=== PATIENT | female | born 1970 | race Caucasian/White ===

== ENCOUNTER 2024-12-03 11:29 | Emergency (ER) | payer OTHER, SELFPAY ==
[2024-12-03 11:31] VITALS: BP 141/95
[2024-12-03 11:37] VITALS: BMI 20.4
--- NOTE | 2024-12-03 12:21 | ED.GENMED ---
History of Present Illness
General
Chief Complaint: Head Injury
Source: patient
Exam Limitations: none
Time Seen by Provider: 12/03/24 12:05
History of Present Illness
History of Present Illness:
54 year old female presents with head injury. She was using a leaf blower and her hair got pulled into the fan of the blower and the blower hit her in the head quite forcefully. No LOC but she notes a significant headache with nausea. No
thinners. No neck pain. Her had to cut her hair to get her head free from the blower.
Past History
Past History
ED Past Medical History: None
Social History
Tobacco: Non-smoker
Alcohol: None
Living: with family
Employment: Employed
Phy Exam
Physical Exam
Physical Exam:
General: Uncomfortable appearing female in no acute respiratory distress HEENT normocephalic 1 cm laceration surrounded by abrasion to the right parietal scalp. TMs normal pupils equal round reactive to light.
Neuro: Alert and oriented. Conversing appropriately. Normal gait and function to arms and legs.
Course
Orders/Labs/Results
Orders:
Orders
12/03/24 12:18
Acetaminophen [Tylenol] 650 mg PO NOW STA
Ondansetron Orally Disint [Zofran Odt (Orally Disintegrating)] 4 mg PO NOW STA
Tetanus/Diphth/Acelpertussis [Adacel] 0.5 ml IM .ONCE ONE
12/03/24 12:19
CT Head W/o Iv Contrast Urgent
Comment:
Reason For Exam: head injury
Vital Signs
Initial and Last Documented VS:
Initial Vital Signs
Temp Pulse Resp BP Pulse Ox
98.3 F 94 16 141/95 100
12/03/24 11:31 12/03/24 11:31 12/03/24 11:31 12/03/24 11:31 12/03/24 11:31
Last Documented Vital Signs
Temp Pulse Resp BP Pulse Ox
98.3 F 94 16 141/95 100
12/03/24 11:31 12/03/24 11:31 12/03/24 11:31 12/03/24 11:31 12/03/24 11:31
MDM/Problems Addressed
Differential Diagnosis Includes:
Head strike on hard object. Laceration to scalp. Consider skull fracture or intracranial hemorrhage given mechanism. Also she is nauseous with severe headache. Will order CT of the head.
*Critical Care Note
Total Time (30-74mins, 75-104mins- exclusive of procedures): Not Applicable
Update Note
Update Note:
The wound was irrigated copiously with saline solution and anesthetized with 1% lidocaine with epinephrine. The skin was then held in approximation with 2 skin johnna. Patient tolerated this well. Head CT is pending
ED Attending Note
-
Portions of this chart may have been created with voice recognition software.� Occasional wrong word or��sound alike� substitutions may have occurred due to the inherent limitations of voice recognition software.
Discharge Plan
Departure
Patient Disposition: Home (Routine Discharge)
Date of Disposition: 12/03/24
Time of Disposition: 14:42
Presentation/result/management discussed w/ accepting MD/DO: Hospitalist
Patient with high blood pressure during this ER visit?: No
Discharge Problem:
Laceration
Instructions: Concussion, Adult (DC), Laceration Repair With [place] (DC)
Referrals:
Vera Ballard MD [Family Provider] -
Stand Alone Forms: Return to Work
Activity Restrictions/Additional Instructions:
Rest. Avoid excessive physical or cognitive activity. Use Tylenol or ibuprofen for pain. Return if worse otherwise follow-up with your doctor
Interventions
Interventions:
*General Assessment Last Done: 12/03/24 11:39
*ED- Fall Risk Assessment Last Done: 12/03/24 11:39
*ED COVID-19 Vaccine History Last Done: 12/03/24 11:39
ED- Neurological Assessment Last Done: 12/03/24 11:41
ED-Skin Assessment Last Done: 12/03/24 11:42
Discharge Date and Time
Print Language: ICELANDIC
[2024-12-03] MEDS: ADACEL 0.5 ML IM (12:22)
[2024-12-03] MEDS: ZOFRAN ODT (ORALLY DISINTEGRATING) 4 MG PO (12:22)
[2024-12-03] MEDS: TYLENOL 650 MG PO (12:22)
== END 2024-12-03 15:04 | disposition home or self-care (01) ==
LOC: EMR 11:29
PROVIDERS: EMERGENCY PHYSICIAN Emergency Medicine; FAMILY PHYSICIAN Family Medicine
DX: S01.01XA Laceration without foreign body of scalp, initial encounter (principal); X58.XXXA Exposure to other specified factors, initial encounter; Z23 Encounter for immunization; R51.9 Headache, unspecified; R11.0 Nausea
CPT/HCPCS: 99284; 12001; 90471; 70450; 90715

== ENCOUNTER 2024-12-06 08:35 | Emergency (ER) | payer OTHER, SELFPAY ==
[2024-12-06 08:43] VITALS: BP 137/85
--- NOTE | 2024-12-06 09:17 | ED.GENMED ---
History of Present Illness
General
Chief Complaint: Head Injury
Source: patient and records
Exam Limitations: none
Time Seen by Provider: 12/06/24 09:03
History of Present Illness
History of Present Illness:
54yoF with a history of migraines presenting with her son for evaluation of headaches. Patient was seen in the ED 3 days ago for a head injury after her hair got stuck in a leaf blower. CT head during that visit was negative and 2 johnna were
placed to her scalp laceration. Patient has been having ongoing headaches and nausea since then. She is also experiencing photophobia and some intermittent dizziness. She has been alternating between Tylenol and ibuprofen for her headaches. She
had an episode of vomiting today which prompted her to come to the ED. She states she is feeling worse than before. Her current headache is rated as a 6/10 in severity. She denies any visual changes or vertiginous symptoms.
Past History
Past History
ED Past Medical History: None
Social History
Tobacco: Non-smoker
Alcohol: None
Living: with family
Employment: Employed
Phy Exam
Physical Exam
Physical Exam:
Sitting in a dark room. Non-toxic appearing.
General Physical Exam
General Presentation: well appearing
General Skin: warm and dry
General Habitus: normal
General Mental: alert
ENT Exam
ENT Exam: TM's normal and other (Two intact johnna in place to R scalp wound)
Eye Exam
Eye Exam: PERRL and conjunctiva normal
Neurological Exam
Neurological Exam: alert and no motor deficits
[place] Coma Scale
Eye Opening: Spontaneous
Verbal Response: Oriented
Motor Response: Obeys Commands
GCS Total Score: 15
Skin Exam
Skin Exam: normal color and warm/dry
Psychiatric Exam
Psychiatric Exam: normal mood/affect
Course
Orders/Labs/Results
Orders:
Orders
12/06/24 09:15
0.9% Sodium Chloride 1000 ml [Nss] 1,000 ml IV BOLUS
Dexamethasone Sod Phosphate [Decadron] 10 mg IV NOW STA
Diphenhydramine [Benadryl] 25 mg IV NOW STA
Ketorolac [Toradol] 15 mg IV NOW STA
Magnesium Sulfate 2 Gram/50 ml [Magnesium Sulfate] 2 gram in 50 ml IV NOW
Metoclopramide [Reglan] 10 mg IV NOW STA
Vital Signs
Initial and Last Documented VS:
Initial Vital Signs
Temp Pulse Resp BP Pulse Ox
98 F 81 18 137/85 97
12/06/24 08:43 12/06/24 08:43 12/06/24 08:43 12/06/24 08:43 12/06/24 08:43
Last Documented Vital Signs
Temp Pulse Resp BP Pulse Ox
98 F 75 18 117/68 96
12/06/24 08:43 12/06/24 11:30 12/06/24 11:30 12/06/24 11:30 12/06/24 11:30
MDM/Problems Addressed
Differential Diagnosis Includes:
54yoF here with ongoing headaches and nausea since having a head injury 3 days ago. Had an episode of vomiting today. Head CT on 12/03 negative for acute findings. Hx of migraines. VSS. She is sitting in a dark room during exam. She is awake, alert,
with a GCS of 15. Differential diagnosis includes but is not limited to: migraine, postconcussive syndrome
Initial ED plan: IV migraine cocktail and reassess.
*Critical Care Note
Total Time (30-74mins, 75-104mins- exclusive of procedures): Not Applicable
Update Note
Update Note:
Patient feeling significantly proved on reassessment and headache is down to a 2/10 in severity. Patient is stable for discharge. Prescription provided for Zofran. Advised close follow-up with PCP. Patient in agreement with plan and she left ED
in stable condition.
ED Attending Note
-
Portions of this chart may have been created with voice recognition software.� Occasional wrong word or��sound alike� substitutions may have occurred due to the inherent limitations of voice recognition software.
Discharge Plan
Departure
Patient Disposition: Home (Routine Discharge)
Date of Disposition: 12/06/24
Time of Disposition: 10:54
Patient with high blood pressure during this ER visit?: No
Discharge Problem:
Acute nonintractable headache, Nausea
Instructions: Concussion, Adult (DC)
Prescriptions:
New
ondansetron 4 mg tablet,disintegrating
4 mg PO Q6H PRN (Reason: nausea and vomiting) Qty: 20 0RF
Referrals:
Vera Ballard MD [Family Provider]
Activity Restrictions/Additional Instructions:
Take Zofran as needed for nausea. Drink plenty of fluids and stay hydrated. You may continue taking Tylenol and ibuprofen as needed.
Please follow-up with your family doctor in 3-4 days. Return to the ER with any new or worsening symptoms.
Interventions
Interventions:
*Risk Screen - Suicide Last Done: 12/06/24 08:43
*General Assessment Last Done: 12/06/24 08:43
*Neglect/Abuse Screening Last Done: 12/06/24 08:43
*Nursing Disposition Last Done: 12/06/24 12:30
ED- Neurological Assessment Last Done: 12/06/24 10:03
ED-Skin Assessment Last Done: 12/06/24 10:03
Discharge Date and Time
Discharge Date/Time: 12/06/24 12:30
Print Language: WELSH
[2024-12-06] MEDS: BENADRYL 25 MG IV (09:34)
[2024-12-06] MEDS: DECADRON 10 MG IV (09:34)
[2024-12-06] MEDS: REGLAN 10 MG IV (09:34)
[2024-12-06] MEDS: TORADOL 15 MG IV (09:34)
[2024-12-06] MEDS: MAGNESIUM SULFATE 50 IV (09:35)
[2024-12-06] MEDS: NSS 1000 IV (09:37)
[2024-12-06 10:01] VITALS: BP 120/69
[2024-12-06 11:30] VITALS: BP 117/68
== END 2024-12-06 12:30 | disposition home or self-care (01) ==
LOC: EMR 08:35
PROVIDERS: EMERGENCY PHYSICIAN Emergency Medicine; FAMILY PHYSICIAN Family Medicine
DX: R51.9 Headache, unspecified (principal); R11.2 Nausea with vomiting, unspecified
CPT/HCPCS: 99284; 96365; 96375 ×4